=== PATIENT | female | born 1965 | race Hispanic/Latino ===

== ENCOUNTER 2018-10-02 14:45 | Outpatient (CLI) | payer OTHER | END 2018-10-02 14:46 | disposition home or self-care (01) | LOC: LAB 14:45 ==

== ENCOUNTER → 2018-11-20 | Outpatient (CLI) | payer OTHER | END | disposition home or self-care (01) | LOC: RAD 15:47 | DX: R22.42 Localized swelling, mass and lump, left lower limb (principal) ==